=== PATIENT | male | born 1980 | race Caucasian/White ===

== ENCOUNTER 2021-09-01 14:36 | Emergency (ER) | payer OTHER, SELFPAY ==
--- NOTE | 2021-09-01 14:44 | ED.GENADULT ---
HPI - General Adult General Chief complaint: Unspecified Stated complaint: needs work note to return to work Time Seen by Provider: 09/01/21 14:53 Source: patient and RN notes reviewed Mode of arrival: ambulatory Limitations: no limitations History of Present Illness HPI narrative: 41-year-old male presents with concern for returning to work after illness. Reports he missed several days of work after having an upper respiratory infection. He reports symptoms started over the weekend with nasal congestion, rhinorrhea, sore throat. Reports one episode of fever on Monday. He reports symptoms have resolved and he is ready to return to work however has to be seen first. He denies any fever reducing medicines in the last 24 hours. MD complaint: Upper respiratory infection Related Data Home Medications Medication Instructions Recorded Confirmed No Home Medications 09/01/21 09/01/21 Allergies Allergy/AdvReac Type Severity Reaction Status Date / Time Sulfa (Sulfonamide Allergy Unknown Unknown Verified 09/01/21 14:54 Antibiotics) Review of Systems Review of Systems: CONSTITUTIONAL: Denies malaise, chills, sweats, or fever. EYES: Denies visual changes, redness, or discharge. ENT: Denies rhinorrhea, congestion, sinus pain, otalgia or sore throat. CARDIOVASCULAR: Denies chest pain, palpitations, or edema. RESPIRATORY: Denies cough or dyspnea. GASTROINTESTINAL: Denies abdominal pain, nausea, vomiting, diarrhea, bloody, or mucous stools. GENITOURINARY: Denies dysuria or hematuria. SKIN: Denies rash or itching. MUSCULOSKELETAL: Denies back pain, joint pain, or myalgia. NEUROLOGIC: Denies numbness, weakness, or headache. PSYCHIATRIC: Denies anxiety or depression. All systems reviewed & are unremarkable except as noted in HPI and below PMFSH Social History Social History Smoking status: Light tobacco smoker Smoking end date: 05/22/13 Alcohol intake: current Comments At time of signature, agree with nursing past medical, surgical, social and family history. There is no relevant family history pertinent to the presenting complaint Exam Narrative: GENERAL: Well-appearing, well-nourished, and in no acute distress. HEAD: Normocephalic, atraumatic. EYES: PERRLA, sclera clear, and EOMI. No nystagmus. ENT: Nares clear, turbinates pink, no rhinorrhea or epistaxis. Mucous membranes moist. TM pearly salomon with sharp light reflex bilaterally; no tragal tenderness. Oropharynx without erythema or lesions. Tonsils not enlarged and without exudate. NECK: Supple. CHEST: No respiratory distress. Clear to auscultation. No bony deformities, no asymmetry. Speaks in full sentences. HEART: Regular rate and rhythm. No murmur heard. Normal peripheral pulses. SKIN: Warm, dry, no visible rash. NEURO: Alert and oriented x3. PSYCH: Normal mood and affect Course Course Emergency Course: Patient is aware of diagnosis, understands and agrees to treatment plan. Anticipatory guidance given. Patient agrees to follow-up as directed and is aware of reasons to seek care at the emergency department. Portions of this record may have been created with voice recognition software Level of Care: Express Care Visit Vital Signs Vital signs: Reviewed. Patient has history of hypertension Medical Decision Making MDM Narrative Medical decision making narrative: Exam findings show no acute concerns or changes; patient is non-toxic appearing and is in no distress. Patient is appropriate for outpatient treatment and follow-up. Critical Care Time Critical Care Time Critical Care Time: No Discharge Plan Discharge Clinical Impression: Upper respiratory infection Qualifiers: URI type: unspecified viral URI Qualified Code(s): J06.9 - Acute upper respiratory infection, unspecified Patient Disposition: Home, Self-Care Condition: Stable Instructions: General Patient Instructions Additional Instructions: 1) Please follow-up with your primary care d
[2021-09-01 14:45] VITALS: BP 169/103; PULSE 85; RESP 16; TEMP 37.2; O2SAT 98
[2021-09-01 14:54] VITALS: BP 169/103; PULSE 85; RESP 16; TEMP 37.2; O2SAT 98
== END 2021-09-01 15:01 | disposition home or self-care (01) ==
PROVIDERS: Emergency Provider Nurse Practitioner
DX: J06.9 Acute upper respiratory infection, unspecified (principal); Z87.891 Personal history of nicotine dependence
CPT/HCPCS: 99202; G0463

== ENCOUNTER 2022-04-01 17:38 | Emergency (ER) | payer OTHER, SELFPAY ==
[2022-04-01 17:47] VITALS: BP 157/81; PULSE 101; RESP 16; TEMP 36.5; O2SAT 98
--- NOTE | 2022-04-01 18:16 | ED.URI ---
HPI - URI/Sore Throat General Chief Complaint: Upper Respiratory Infection Stated Complaint: headache nausea sore throat fever Time Seen by Provider: 04/01/22 18:16 History of Present Illness HPI Narrative: 41-year-old male presenting for complaint of headache, nausea, sore throat and fever. Onset 3 days. Denies sinus congestion, vomiting, diarrhea, abdominal pain, shortness of breath or wheezing. He is taking DayQuil and NyQuil for symptoms. Denies sick contacts. Related Data Home Medications Medication Instructions Recorded Confirmed No Home Medications 09/01/21 09/01/21 Allergies Allergy/AdvReac Type Severity Reaction Status Date / Time Sulfa (Sulfonamide Allergy Unknown Unknown Verified 04/01/22 17:59 Antibiotics) Review of Systems Review of Systems: CONSTITUTIONAL: Denies body aches, fever, chills, or sweats. EYES: Denies visual changes, redness, or discharge. ENT: Denies rhinorrhea, congestion, or otalgia. CARDIOVASCULAR: Denies chest pain, palpitations, or edema. RESPIRATORY: Denies dyspnea. GASTROINTESTINAL: Denies abdominal pain, vomiting, or diarrhea. SKIN: Denies rash, itching, or wounds. MUSCULOSKELETAL: Denies back pain, joint pain, or myalgia. [facility] Social History Social History Smoking status: Light tobacco smoker Smoking end date: 05/22/13 Alcohol intake: current Exam Narrative: GENERAL: well-appearing, no acute distress. EYES: conjunctivae clear ENT: Mucous membranes moist. TMs pearly salomon with normal light reflex bilaterally; no tragal tenderness. Oropharynx erythematous without lesions. No drooling, no hoarseness, no trismus, uvula midline. No tripod positioning, hot potato voice, or soft palate swelling. NECK: Supple. No lymphadenopathy CHEST: Clear to auscultation, breath sounds equal. HEART: Regular rate and rhythm. No murmur heard. SKIN: Warm, dry, no rash. NEURO: Alert and oriented x3. Course Course Emergency Course: Patient is aware of diagnosis, understands and agrees to treatment plan. Anticipatory guidance given. Patient agrees to follow-up as directed and is aware of reasons to seek care at the emergency department. Portions of this record may have been created with voice recognition software Level of Care: Express Care Visit Vital Signs Vital signs: Vital Signs Temperature 97.7 F 04/01/22 17:47 Pulse Rate 101 H 04/01/22 17:47 Respiratory Rate 16 04/01/22 17:47 Blood Pressure 157/81 H 04/01/22 17:47 Pulse Oximetry 98 04/01/22 17:47 Oxygen Delivery Room Air 04/01/22 17:47 Temperature 97.7 F 04/01/22 17:47 Pulse Rate 101 H 04/01/22 17:47 Respiratory Rate 16 04/01/22 17:47 Blood Pressure 157/81 H 04/01/22 17:47 Pulse Oximetry 98 04/01/22 17:47 Oxygen Delivery Room Air 04/01/22 17:47 MDM - URI/Sore Throat MDM Narrative Medical decision making narrative: Neg strep result reviewed with pt. Advise supportive treatments. Patient is appropriate for outpatient treatment and follow-up. Differential Diagnosis Differential diagnosis: Likely upper respiratory infection, viral infection and pharyngitis Lab Data Labs: Influenza A Screen Negative Reference Range: Negative Influenza B Screen Negative Reference Range: Negative Strep Screen Presumptive Negative *(Reference Range: Negative)* Discharge Plan Discharge Clinical Impression: Pharyngitis Patient Disposition: Home, Self-Care Condition: Stable Instructions: Antibiotic Form, Pharyngitis (ED) Additional Instructions: Rapid strep swab was negative today You will be notified in a few days if the culture comes back positive for strep, and appropriate antibiotics will be called in at that time. if symptoms are
== END 2022-04-01 18:29 | disposition home or self-care (01) ==
PROVIDERS: Emergency Provider Nurse Practitioner Family
DX: J02.9 Acute pharyngitis, unspecified (principal); R51.9 Headache, unspecified; R50.9 Fever, unspecified; R11.0 Nausea; Z87.891 Personal history of nicotine dependence
CPT/HCPCS: 87081; 87804; 87880; 99213; G0463